=== PATIENT | male | born 1970 | race Caucasian/White ===

== ENCOUNTER 2019-06-17 22:32 | Emergency (ER) | payer OTHER | END 2019-06-17 22:56 | disposition home or self-care (01) | LOC: EDH 22:32 | DX: S39.002A Unspecified injury of muscle, fascia and tendon of lower back, initial encounter (principal); G89.29 Other chronic pain; Z90.49 Acquired absence of other specified parts of digestive tract; Z72.0 Tobacco use; X58.XXXA Exposure to other specified factors, initial encounter; Y93.89 Activity, other specified; Y92.89 Other specified places as the place of occurrence of the external cause; Y99.8 Other external cause status | CPT/HCPCS: 99281 ==